=== PATIENT | female | born 1990 | race Caucasian/White ===

== ENCOUNTER 2017-10-12 19:26 | Emergency (ER) | payer MEDICAID ==
[~2017-10-12] VITALS: Ht 162.6 cm; Wt 59.0 kg
[2017-10-12 19:32] VITALS: BP 140/89
== END 2017-10-12 20:14 | disposition home or self-care (01) ==
LOC: ER 19:26
DX: H60.93 Unspecified otitis externa, bilateral (principal); B99.9 Unspecified infectious disease; H10.89 Other conjunctivitis; F32.9 Major depressive disorder, single episode, unspecified; F41.9 Anxiety disorder, unspecified; E11.9 Type 2 diabetes mellitus without complications
CPT/HCPCS: 99283; A4606; Z7610